=== PATIENT | male | born 1930 | race Caucasian/White ===

== ENCOUNTER 2016-11-14 15:13 | Emergency (ER) | payer MEDICARE, BC ==
[~2016-11-14] VITALS: Ht 180.3 cm; Wt 100.0 kg
[~2016-11-14 15:13] MED LIST: ALDACTONE25 MG PO; ALLOPURINOL100 MG PO; ALPRAZOLAM0.25 MG PO; ALPRAZOLAM0.5 M1 PO; ASPIRIN LOW DOS81 MG PO; BACLOFEN10 MG PO; BACTRIM DS1 TAB PO; BACTROBAN2 % EX; BUMETANIDE1 MG PO; CALCITRIOL0.25 MC1 PO; CARVEDILOL6.25 MG PO; CLOTRIM/BETA EX; DEPO-MEDROL80 MG/ML IM; DILTIAZEM120 M2 PO; DILTIAZEM120 MG PO; DILTIAZEM180 M1 PO; FUROSEMIDE20 MG PO; HYDRALAZINE25 MG PO; L-THYROXINE PO; LANOXIN0.125 MG PO; LISINOP/HCTZ1 TA2 PO; LISINOP/HCTZ1 TAB PO; LISINOPRIL20 MG PO; METO25TAB PO; METOPROLOL SUCC25 MG PO; MITIGARE0.6 MG; MULTAQ400 MG PO; NEURONTIN100 MG PO; OMEPRAZOLE20 MG PO; PAROXETINE10 MG PO; PRILOSEC20 MG/CAP PO; SM IRON PO; TAMSULOSIN0.4 MG PO; VITAMIN B1; XANAX0.25 MG PO
[2016-11-14 15:15] VITALS: BP 101/62
[2016-11-14 16:04] LABS: HEMOGLOBIN 10.3 g/dl (14.0-18.0); IMMATURE GRANULOCYTES 0.3 % (0.0-1.0); MEAN CELL VOLUME 90.9 fL CALC (80.0-100.0); MEAN CORPUSCULAR HGB 30.2 pG CALC (26.0-32.0); MEAN CORPUSCULAR HGB CONC 33.2 g/L CALC (32.0-36.0); NEUT# 8.06 thou/uL (1.82-7.42); RED BLOOD COUNT 3.41 mill/uL (4.70-6.10); RED CELL DISTRI WIDTH 14.9 % (11.5-15.5)
[2016-11-14 16:22] LABS: ALBUMIN 2.4 g/dL (3.2-5.0); ALKALINE PHOSPHATASE 102 u/l (38-126); AMYLASE 31 u/l (30-110); ANION GAP 18 (6-22 (CALC)); BILIRUBIN, TOTAL 0.9 mg/dL (0.0-1.4); CALCIUM 8.5 mg/dL (8.4-10.2); CARBON DIOXIDE 20 mmol/l (22-30); CHLORIDE 105 mmol/l (95-108); GFR 7 ML/MIN (>=60 (CALC)); GFR FOR AFR.AMER. 8 ML/MIN (>=60 (CALC)); GLUCOSE 95 mg/dL (82-115); LIPASE < 10 u/l (23-300); POTASSIUM 4.8 mmol/l (3.5-5.1); SGOT/AST 15 u/l (19-48); SGPT/ALT 29 u/l (11-66); SODIUM 139 mmol/l (137-146); TOTAL PROTEIN 6.2 g/dL (6.3-8.2)
[2016-11-14 16:29] LABS: BUN/CREATININE RATIO 14 (12-20 (CALC))
[2016-11-14 16:30] LABS: BUN 108 mg/dL (8-23); CREATININE 7.7 mg/dL (0.7-1.3)
[2016-11-14 16:34] LABS: MYOGLOBIN 124 ng/mL (0 - 121)
== END 2016-11-14 20:47 ==
LOC: ED 15:13
PROVIDERS: Emergency Medicine
DX: N17.9 Acute kidney failure, unspecified (principal); R18.8 Other ascites; I10 Essential (primary) hypertension; I48.91 Unspecified atrial fibrillation; R53.1 Weakness; R17 Unspecified jaundice; R94.31 Abnormal electrocardiogram [ECG] [EKG]